=== PATIENT | female | born 1990 | race Caucasian/White ===

== ENCOUNTER 2020-07-19 01:44 | Emergency (ER) | payer MEDICAID ==
[~2020-07-19] VITALS: Ht 162.6 cm; Wt 66.7 kg
[2020-07-19 01:59] VITALS: Ht 162.6 cm; Wt 66.7 kg
[2020-07-19 02:44] VITALS: BP 117/85
== END 2020-07-19 02:44 | disposition home or self-care (01) ==
LOC: ED 01:44
DX: G58.9 Mononeuropathy, unspecified (principal)